=== PATIENT | male | born 1995 | race African-American/Black ===

== ENCOUNTER 2024-07-16 18:35 | Emergency (ER) | payer OTHER ==
[~2024-07-16] VITALS: Ht 170.2 cm; Wt 77.3 kg
[2024-07-16 18:40] VITALS: BP 145/82
[2024-07-16] MEDS ORDERED: Tdap Vaccine 0.5 ML SYRINGE IM ONE (19:00)
== END 2024-07-16 20:15 | disposition home or self-care (01) ==
LOC: ED 18:35
DX: S61.210A Laceration without foreign body of right index finger without damage to nail, initial encounter (principal); W25.XXXA Contact with sharp glass, initial encounter; Y93.89 Activity, other specified
CPT/HCPCS: 90715